=== PATIENT | female | born 1965 | race Caucasian/White ===

== ENCOUNTER 2020-09-15 16:51 | Outpatient (CLI) | payer OTHER, SELFPAY ==
--- NOTE | ~2020-09-15 | MM_ITS ---
EXAMINATION: MM screening [facility] w angela HISTORY: Screening TECHNIQUE: Craniocaudal and mediolateral oblique 3-D tomosynthesis images were obtained and synthetic 2-D images were generated. CAD analysis was submitted and interpreted. COMPARISON: Comparison to multiple prior studies sequentially, with oldest reviewed study dated 11/04. BREAST PARENCHYMAL COMPOSITION: The breasts are heterogeneously dense, which may obscure small masses . FINDINGS: There is no evidence of suspicious mass, calcification, or architectural distortion to sugg est malignancy in either breast. There has been no suspicious interval change. IMPRESSION: 1. No mammographic evidence of malignancy. 2. Recommend routine screening mammography in one year. BI-RADS Category 1: Negative Reviewed, dictated and finalized at location A. GER BAR
== END 2020-09-15 16:52 | disposition home or self-care (01) ==
LOC: ANHIMG 16:55
PROVIDERS: PCP Family Medicine; Visit Provider Obstetrics & Gynecology
DX: Z12.31 Encounter for screening mammogram for malignant neoplasm of breast (principal)
CPT/HCPCS: 77063; 77067

== ENCOUNTER 2021-09-22 17:41 | Outpatient (CLI) | payer OTHER, SELFPAY ==
--- NOTE | ~2021-09-22 | MM_ITS ---
EXAMINATION: MM screening [facility] BI w angela HISTORY: Screening mammogram TECHNIQUE: Craniocaudal and mediolateral oblique 3-D tomosynthesis images were obtained and synthetic 2-D images were generated. CAD analysis was submitted and interpreted. COMPARISON: 09/15/2020, 11/30/2018, 11/16/2017 BREAST PARENCHYMAL COMPOSITION: The breasts are heterogeneously dense, which may obscure small masses . FINDINGS: There is no evidence of suspicious mass, calcification, or architectural distortion to sugg est malignancy in either breast. There has been no suspicious interval change. IMPRESSION: 1. No mammographic evidence of malignancy. 2. Recommend routine screening mammography in one year. BI-RADS Category 1: Negative Reviewed, dictated and finalized at location A. RTMENT HEAD
== END 2021-09-22 17:42 | disposition home or self-care (01) ==
LOC: ANHIMG 17:43
PROVIDERS: PCP Family Medicine; Visit Provider Obstetrics & Gynecology
DX: Z12.31 Encounter for screening mammogram for malignant neoplasm of breast (principal)
CPT/HCPCS: 77063; 77067

== ENCOUNTER 2022-10-12 07:16 | Outpatient (CLI) | payer BC, SELFPAY ==
--- NOTE | ~2022-10-12 | MM_ITS ---
EXAMINATION: MM screening [facility] BI w angela HISTORY: Screening mammogram TECHNIQUE: Craniocaudal and mediolateral oblique 3-D tomosynthesis images were obtained and synthetic 2-D images were generated. CAD analysis was submitted and interpreted. COMPARISON: 09/22/2021, 09/15/2020, 11/30/2018 BREAST PARENCHYMAL COMPOSITION: The breasts are heterogeneously dense, which may obscure small masses . FINDINGS: No suspicious mass, calcification, or architectural distortion are identified in either gary ast to suggest malignancy. There has been no suspicious interval change. IMPRESSION: 1. No mammographic evidence of malignancy. 2. Recommend routine screening mammography in one year. BI-RADS Category 1: Negative Reviewed, dictated and finalized at location A. MECHANIC
--- NOTE | ~2022-10-12 | DEXA_ITS ---
Bone Density Report Name: TESFAYE STUART Age: 56 Sex: Female Ethnicity: White Date of : 1965 Indication: postmenopausal; screening for osteoporosis; Referring Provider: TAN SHAFFER Study: Bone densitometry was performed. Exam Date: October 12, 2022 Accession number: [id number] Bone Density: Region BMD T-score Z-score Classification AP Spine(L1-L4) 1.054 0.1 1.4 Normal Femoral Neck (Left) 0.975 1.1 2.4 Normal Total Hip (Left) 1.114 1.4 2.3 Normal Femoral Neck (Right) 0.983 1.2 2.4 Normal Total Hip (Right) 1.065 1.0 1.9 Normal Total Hip Mean 1.089 1.2 2.1 Normal World Health Organization criteria for BMD impression classify patients as: Normal (T-score at or above -1.0), Osteopenia (T-score between -1.0 and -2.5), or Osteoporosis (T-score at or below -2.5). 10-year Fracture Risk: FRAX not reported because: All T-scores for Spine Total, Hip Total, Femoral Neck at or above -1.0 Clinical Information Provided by Patient: Patient maximum height was 67 Menopause Age: 40 Drinks caffeinated beverages Onset of menses at age 10 Number of children 2 Impression: The patient has normal bone mass. Discussion: BONE DENSITY IS ABOVE THE MINIMUM DESIRABLE LEVEL AT ALL SKELETAL SITES TESTED. This patient?s bone mineral density is above the minimum desirable level (T-score -1.0 or better) at all sites measured. The patient should follow a healthful lifestyle (good nutrition with adequate calcium and vitamin D, and appropriate weight-bearing exercise). Follow-Up: Consider repeating this study in 5 years or sooner if there is some new clinical indication. Reported by: [facility] on 10/12/2022 7:53:00 AM. Reviewed, dictated and finalized at location [facility]
== END 2022-10-12 07:17 | disposition home or self-care (01) ==
LOC: ANHIMG 07:20
PROVIDERS: PCP Family Medicine; Visit Provider Obstetrics & Gynecology
DX: Z12.31 Encounter for screening mammogram for malignant neoplasm of breast (principal); Z78.0 Asymptomatic menopausal state
CPT/HCPCS: 77063; 77067; 77080

== ENCOUNTER 2024-09-18 15:55 | Outpatient (CLI) | payer BC, SELFPAY ==
--- NOTE | ~2024-09-18 | MM_ITS ---
EXAMINATION: MM screening [facility] BI w angela HISTORY: Screening TECHNIQUE: Craniocaudal and mediolateral oblique 3-D tomosynthesis images were obtained and synthetic 2-D images were generated. CAD analysis was submitted and interpreted. COMPARISON: 10/12/2022 and dating back to 11/30/2018 BREAST PARENCHYMAL COMPOSITION: The breasts are heterogeneously dense, which may obscure small masses . FINDINGS: Punctate calcification within the retrocrural areolar portion of the right breast, stable a nd benign in appearance. Stable parenchymal pattern without suspicious microcalcifications, architectural distortion, discrete masses or significant asymmetry. IMPRESSION: 1. No mammographic evidence of malignancy. 2. Recommend routine screening mammography in one year. BI-RADS Category 2: Benign finding(s). Reviewed, dictated and finalized at location A. GER TALENT ACQUISITION
== END 2024-09-18 15:56 | disposition home or self-care (01) ==
PROVIDERS: PCP Family Medicine; Visit Provider Obstetrics & Gynecology
DX: Z12.31 Encounter for screening mammogram for malignant neoplasm of breast (principal)
CPT/HCPCS: 77063; 77067

== ENCOUNTER 2025-02-04 | Day surgery (SDC) | payer BC, SELFPAY ==
[2025-01-26 14:15] VITALS: BMI 28.2
--- OUTSIDE RECORDS SUMMARY | 2025-02-04 00:02 | XMS_ITS | Data Portability ---
Author Organization [place] [employer] [facility] [employer], Main Office Address [address] [place] [address] Assessment Encounter Date Assessment Date Assessment LastModified by Organization Details LastModified Time 12/04/2022 12/04/2022 HPI: 56-year-old female came in today for evaluation of right medial elbow pain. This pain started last summer when she was helping her daughter clean and clear out her house before selling it. She did a lot of extra work with her hands gripping and holding. She started having some symptoms in the medial elbow. She has had symptoms since that time on and off depending on activities. She is very active individual and still exercises regularly and golfs. These activities will bother her at times. She will take cxwi-tcc-bodqxhi anti-inflammator ies when it is painful but not on a consistent basis. She does have a tennis elbow strap which she has used which seems to help a little bit with her symptoms as well. Physical exam: 56-year-old female very alert pleasant. Her right elbow she has full range of motion, she hyperextends 2 flexes to 140. No pain with range of motion. Full pronation supination without discomfort. Mild tenderness over the medial epicondyle to palpation. No numbness or tingling in the hand. 2+ radial pulse. No redness or warmth about the elbow. Impression: 56-year-old female who has medial epicondylitis of the right elbow. I discussed treatment options with her. Her x-rays do show small spur so this is something that is probably a little more chronic. Initially I have recommended that she stop lifting and holding things with palm up and change her mental health assistant have it as this will take stress off of this area. I have recommended a course of occupational therapy did work on decreasing the inflammation in this area. I also recommended that she take her hmkm-vvs-koecaze naproxen on a regular basis. She is healthy so I recommended to the morning and 2 at night consistently for the next several weeks to try to get things to quiet down as well. Also recommend that she use her splint on more regular basis as well. She should minimize or modify activities to decrease irritation on the medial elbow. She is going to try these measures to see how well she improves. We will see her back in a month for re-evaluation. 20 minutes was spent in treatment patient more than half of this in idwj-cw-cyyu conversation Not available 12/04/2022 16:22:45 01/12/2023 01/12/2023 HPI: Patient returns. She is still having some pain in medial aspect of the right elbow. She went to therapy and did 8 visits. She has been using anti-inflammator ies and trying to rest it. Unfortunately this is her dominant arm so she does use it on a daily basis. Her symptoms overall have improved. There is still a mild degree of pain in the medial elbow. She has symptoms when she is using it. Again it is not severe. Physical exam: Patient has full range of motion of the elbow. Mild moderate tenderness over the medial condyle. There is no numbness or tingling hand. No redness or warmth. Negative cubital tunnel Tinel's. The After ChloraPrep used on skin 5 mg Kenalog and 1 cc of 0.5% ropivacaine was injected into the areas of maximal tenderness right medial condyle. Impression: 57-year-old female who has medial epicondylitis that started last summer in February. She has been resting as much as possible. She with formal physical therapy as well as anti-inflammator ies with some improvement of her symptoms. We did discuss the option of cortisone injection and patient wanted to do this. I discussed with her that multiple injections in the tendon could cause softening tendon and would recommend against repeated injections and she understands these. After the injection she noticed significant improvement of her symptoms immediately from the ropivacaine so hopefully this will help. If it does she recall otherwise we will see her back as needed. 20 minutes was spent in treatment patient more than half this in vtke-vg-[id number] conversation Not available 01/12/2023 10:59:32 Plan of Treatment Reminders Order Date Submit Date Provider Last Modified By Organization Details Last Modified Time Details Appointments None recorded. Lab None recorded. Referral None recorded. Procedures injection/a spiration joint/bursa (PROC) - in office procedure, administere d by provider 2022 023 [email or web address] In-Office Order, Internal Use Only DO Not Attach Compendium DO Not Attach Compendium, Do Not Delete/merge, [id number] 10:17:09 Surgeries None recorded. Imaging XR, elbow 2022 023 [address] [place], [address], [place], [address], 16:03:18 Medication Orders Kenalog 10 mg/mL suspension for injection 2022 [address]23 [place] [address] [id number], [address], [place], [place], [id number], 3 21:15:56 ropivacaine (PF) 5 mg/mL (0.5 %) injection solution 2022 023 [place] [address] [facility][id number], [address] [facility], [place], [place], [phone], 3 21:15:56 Patient TargetsNo targets recorded. Patient InstructionsNo instructions recorded. Reason for Referral None Reported. Results Created Date Observation Date Name Description Value Unit Range Abnormal Flag Note LastModifiedBy Organization Detail LastModifiedTime 09/13/2009/15/2021 IGP, APTIM A HPV HPV aptima negati ve negati ve This nucle ic acid ampli ficat ion test detec ts fourt een high- risk HPV types (16,1 8,31, 33,35 ,39,4 5,51, 52,56 ,58,5 9,66, 68) witho ut diffe renti ation . Not Available [facility] [address] [place], [place], [address], 09/19/2021 12:08:37 09/13/2009/1909/19/2021 IGP, APTIM A HPV diagnosis: commen t NEGAT ASIM FOR INTRA EPITH ELIAL LESIO N OR MALIG KASSANDRA . [facility] [employer] WITH ATROP HY ARE PRESE NT. [facility] [employer] WITH INFLA MMATI ON ARE PRESE NT. Not Available [facility] [address] [facility] [place], [address], 09/19/2021 12:08:37 09/13/20 21 09/19/2021 IGP, APTIM A HPV specimen adequacy: commen t Satis facto ry for evalu ation . Endoc ervic al and/o r squam ous metap lasti c cells (endo cervi maria guadalupe compo nent) are prese nt. Not Available [facility] [address] [facility] [place], [address], 09/19/2021 12:08:37 09/13/20 21 09/19/2021 IGP, APTIM A HPV clinician provided ICD10: juanis smith Z01.4 19 Not Available [facility] [address] [facility] [place], [address], 09/19/2021 12:08:37 09/13/20 21 09/19/2021 IGP, APTIM A HPV performed by: juanis tian, Cytot echkavitha scruggs t (ASCP ) Not Available [facility] [address] [facility] [place], [address], 09/19/2021 12:08:37 09/13/20 21 09/19/2021 IGP, APTIM A HPV . . Not Available [facility] [address] [facility], [address], 09/19/2021 12:08:37 09/13/20 21 09/19/2021 IGP, APTIM A HPV note: commen t The Pap smear is a scree neeru test severo liu to aid in the detec tion of anne ligna nt and malig nant condi tions of the uteri ne cervi x. It is not a diagn ostic proce dure and shoul d not be used as the sole means of detec ting cervi maria guadalupe cance r. Both false -posi tive and false -nega tive repor ts do occur . Not Available [facility] [address] [place], [address], 09/19/2021 12:08:37 09/13/20 21 09/19/2021 IGP, APTIM A HPV test methodology: commen t This liqui d based ThinP rep(R ) pap test was scree alexa with the use of an image guide d syste m. Not Available [facility] [address] [facility] [place], [address], 09/19/2021 12:08:37 12/05/19 23 XR, elbow No observ ation record ed. [email or web address] [facility] [place] [address], [place], [address], 12/04/2022 16:19:44 Result Notes None recorded. Problems Name Problem SNOMED Code Status Onset Date Resolution Date Notes Provider Name and Address Organization Details Recorded Time Acquired trigger finger 9220016 Active Not Available [facility] 3 08:09:08 Sprain of medial collateral ligament of knee 45947680 Active Not Available [facility] 3 08:09:08 Pain of right elbow joint [id number] 9109 Active 2022 VISHNU [place], [place] [facility] [employer] [facility] 3 15:33:45 Problem Notes None recorded. Procedures Surgical History Date Name Laterality Status Provider Name and Address Organization Details Recorded Time 09/13/20 21 Date of Last Pap Smear completed Not Available [facility] 11/22/2022 08:06:08 09/15/20 20 Most Recent Mammogram completed Not Available [facility] 11/22/2022 08:06:08 12/01/19 15 Date of Last Colonoscopy completed Not Available [facility] 11/22/2022 08:06:07 05/25/20 06 other completed Not Available [facility] 3 08:06:08 09/24/19 06 [employer] Surgery completed Not Available [facility] 11/23/19 23 08:06:08 05/25/19 91 [employer] Surgery completed Not Available [facility] 11/23/19 23 08:06:08 Imaging Results Imaging Date Name Status LastModified by Organiz ation Details LastModified Time 12/04/2022 XR, elbow completed [email or web address] [facility] [place] [address], [place], [address], 12/04/2022 16:19:44 Procedure Notes None recorded. Medical Equipment None Reported. Allergies Allergen ID Allergen Name Allergen Category Reaction Reaction Severity Criticality Documentation Date Start Date Code Code System Note Provider Name and Address Organization Details Recorded Time yellow dye medicatio n Not available Not available Not available 11/22/2022 UNK yello w pills Not Available [facility] 3 08:12:37 20675 guaifenes in / phenyleph rine medicatio n rash Not available Not available 11/22/2022 78815 7 RxNorm Swoll en red legs Not Available [facility] 3 08:12:37 Medications Name Sig Start Date Stop Date Status Note LastModified by Organization Details LastModified Time amoxicillin 500 mg capsule 09/13 completed Not Available Not Available Not Available atorvastati n 10 mg tablet TAKE 1 TABLET BY MOUTH DAILY active Not Available Not Available No t Available benzonatate 200 mg capsule 10/10 completed Not Available Not Available Not Available Kenalog 10 mg/mL suspension for injection in office 2022 active [facility]: [phone] Not Available Not Available Not Available simvastatin 5 mg tablet Take 1 tablet every day by oral route. 09/13 completed Not Available Not Available Not Available erythromyci n 5 mg/gram (0.5 %) eye ointment APPLY TO INCISION THREE TIMES DAILY AFTER SURGERY active Not Available Not Available No t Available diclofenac sodium 75 mg tablet,anthony yed release 11/25 completed Not Available Not Available Not Available methylpredn isolone 4 mg tablets in a dose pack 09/13 completed Not Available Not Available Not Available fluticasone propionate 50 mcg/actuati on nasal spray,suspe nsion 11/25 completed Not Available Not Available Not Available amoxicillin 875 mg-potassiu m clavulanate 125 mg tablet 09/13 completed Not Available Not Available Not Available Estrace 0.01% (0.1 mg/gram) vaginal cream Insert 1 g 3 times a week by vaginal route for 90 days. active Not Available Not Available No t Available escitalopra m 10 mg tablet Take 1 tablet every day by oral route. 09/13 completed Not Available Not Available Not Available lidocaine (PF) 10 mg/mL (1 %) injection solution In office injection administe red by the provider 09/14 completed [facility]: [phone] Not Available Not Available Not Available Suprep Bowel Prep Kit 17.5 gram-3.13 gram-1.6 gram oral solution active Not Available Not Available Not Available ropivacaine (PF) 5 mg/mL (0.5 %) injection solution in office 2022 active Not Available Not Available Not Avai lable Fluzone Quad (PF) 60 mcg(15 mcgx4)/0.5 mL intramuscul ar syringe ADM 0.5ML IM UTD 09/02 completed Not Available Not Available Not Available Fluarix Quad (PF) 60 mcg (15 mcg x 4)/0.5 mL IM syringe ADM 0.5ML IM UTD 12/04 completed Not Available Not Available Not Available Vitals Date Recorded Body mass index (BMI) Body height Body temperature Body weight Systolic blood pressure Diastolic blood pressure Provider Name and Address Organization Details Last Updated DateTime 1 23.6 kg/m2 170.18 cm 97.6 [degF] 07345.4 5 g 126 mm[Hg] 84 mm[Hg] Not Available [employer] 3 08:06:19 Date Recorded Body height Body mass index (BMI) Body weight Provider Name and Address Organization Details Last Updated DateTime 12/04/2022 167.64 cm 26.6 kg/m2 11060.74 g VISHNU [place] [facility] [employer] [facility] 12/04/2022 15:40:07 Date Recorded Body height Provider Name an d Address Organization Details Last Updated DateTime 01/12/2023 167.64 cm Rhiannon Aguilar, Lance [facility] [employer] 01/12/2023 09:58:29 Social History Question Answer Notes LastModified by Organizat ion Details LastModified Time Tobacco Smoking Status Never Smoker Mara Goyal britney, [facility] [employer] 12/04/2022 15:20:27 What Is Your Level Of Caffeine Consumption? Occasional [id number] Information not available 11/22/2022 What Is Your Relationship Status? [id number] Information not available 11/22/2022 Do You Use Your Seat Belt Or Car Seat Routinely? Yes Information not available 12/04/2022 Sex: Female Functional Status Question Answer Note LastModified by Organizat ion Details LastModified Time Do you use any illicit or recreational drugs? No Information not available 12/04/2022 What is your level of alcohol consumption? Occasional [id number] Information not available 11/22/2022 What is your exercise level? Heavy [id number] Information not available 11/22/2022 Mental Status None recorded. Family History Relationship Description Onset Age of this Age Resolved Age Notes LastModified by Organization Details LastModified Time Mother Diabetes mellitus [id number] Not available 11/22/2022 08:06:09 Mother Heart disease [id number] Not available 11/22/2022 08:06:09 Mother Hypertensive disorder [id number] Not available 11/22/2022 08:06:09 Medical History Condition Response ANXIETY DISORDER Y DEPRESSION (INCLUDING POST ) Y HIGH CHOLESTEROL / HYPERLIPIDEMIA Y Gynecological History Statement/Question Response Abnormal Pap N Date of Last Colonoscopy 11/30/2014 Date of LMP Date of Last Pap Smear 09/13/2021 Current Control Method Menopause Age at Menarche 12 Most Recent Mammogram 09/15/2020 Obstetrics History GPAL:G 2 P 2 0 0 2 Type Value Full Term 2 Living 2 Total 2 Past Encounters Encounter ID Performer Location Encounter Start Date Encounter Closed Date Diagnosis/Indication Diagnosis SNOMED-CT Code Diagnosis ICD10 Code Diagnosis Note [id number] [facility]_M IGR[facility]_ DEFAULT_1 _1 , 09/13/2021 00:00:00 09/13/2021 18:56:47 [id number] Romario Al MD [facility] [place] [address] [place] [address] 12/04/2022 15:19:25 12/04/2022 16:23:52 Pain of right elbow joint 6132010588 7800134 M25.521 [id number] Romario Al MD [facility] [place] [address] [place] [address] 01/12/2023 09:55:13 01/12/2023 11:11:35 Pain of right elbow joint 1708887658 9949387 M25.521 Health Concerns Section Related Observation LastModified by Organization Detai ls LastModified Time None Recorded Concern Status LastModified by Organization Details LastModified Time None Recorded Advance Directives Directive None Recorded Payers Encounter Date Sequence Insurance Name Policy Number Policy Akins Covered Member ID Akins Member ID Guarantor Name 12/04/2022 1 [place] [id number] Chari Perales [id number] Chari Perales 01/12/2023 1 [place] [id number] Chari Perales [id number] Chari Perales OBGyn Episode No OBEpisode recorded.
[2025-02-04 08:25] VITALS: BP 123/73; PULSE 70; RESP 16; TEMP 36.2; O2SAT 99
[2025-02-04] MEDS: LACTATED RINGERS 1,000 ML 150 ML IV CONT (08:33)
--- NOTE | 2025-02-04 08:37 | P.PNAN_ITS ---
Anes - Initial Pre Proc Eval Procedure: Operation Date: 02/04/25 09:30 Proposed Procedures p Screening Colonoscopy - Rafita Fallon MD Date/Time: 02/04/25 08:37 Surgeon: Rafita Fallon MD Pre Op Diagnosis: Screening Patient Data Age: 59 Gender: F Height: 1.7 m Weight: 80.1 kg Last Vital Signs Temp 36.2 C L 02/04/25 08:25 Pulse 70 02/04/25 08:25 Resp 16 02/04/25 08:25 BP 123/73 02/04/25 08:25 Pulse Ox 99 02/04/25 08:25 O2 Del Method Room Air 02/04/25 08:25 Allergies Allergy/AdvReac Type Severity Reaction Status Date / Time guaifenesin (From Entex T) Allergy Severe Redness of Verified 02/04/25 08:23 Skin pseudoephedrine (From Entex Allergy Severe Redness of Verified 02/04/25 08:23 T) Skin Home Medications Medication Instructions Recorded Confirmed Type multivitamin (Daily Multi-Vitamin 1 tablet PO DAILY 08/09/22 02/04/25 History tablet) biotin 10,000 mcg chewable tablet mcg PO 07/26/23 01/06/25 History (Hair, Skin and Nails (biotin)) escitalopram oxalate 20 mg tablet 20 mg PO DAILY #90 tabs 08/25/24 02/04/25 Rx cholecalciferol (vitamin D3) 25 25 mcg PO DAILY 08/27/24 02/04/25 History mcg (1,000 unit) capsule atorvastatin 10 mg tablet See Rx Instructions .Route 09/26/24 02/04/25 Rx .COMPLEX #90 tabs buspirone 10 mg tablet 10 mg PO BID #180 tabs 01/15/25 02/04/25 Rx Patient hx anesthesia problems: none Family hx anesthesia problems: none Results Review: All pre-operative results and documents have been reviewed as part of the pre-operative evaluation. [facility] Past Medical History Medical History Asymptomatic menopausal state Screening mammogram, encounter for History of mammogram (~11/16/14) Surgical History Surgical History History of tubal ligation (~1990) History of endometrial ablation (~10/25/05) History of colonoscopy (~11/30/14) Family History Family History Father Family history of cardiovascular disease Family history of arthritis Malignant neoplasm of prostate Family history of cardiac disorder Mother Family history of cardiovascular disease Family history of chronic obstructive pulmonary disease Social History Social History Smoking status: Never smoker Second hand tobacco smoke exposure: No Alcohol intake: current Alcohol use details: occasionally Substance use: never Substance use type: does not use Do You Feel Safe in your Home?: Yes Lack of Transportation: No Lack of Food: Never True Current Housing: I Have Housing Concerned About Future Housing: No Difficulty Paying Gas/Electric Bills: No Difficulty Paying for Meds: No Currently Unemployed: No Education: High School Diploma/GED Difficulty w/ Childcare or Family Care: No Living arrangements: with family Additional living arrangements comments: Occupation/Education: retired Gender identity (if verbalized by the patient): Female Sexual Orientation (if Verbalized by the Patient): Straight or Heterosexual Agree to blood products: Yes Anes - Eval Final PreProcedure Day of Procedure 02/04/25 08:37 Patient weight: overweight Heart: regular rate and rhythm Lungs: clear to auscultation Airway: Mallampati scale class II Neurological: alert and oriented Last oral intake: >/= 8 hours ASA classification: II Emergent: no Anesthetic plan: proceed Anesthesia type and monitoring: general GIVS and standard monitoring Results Review: All pre-operative results and documents have been reviewed as part of the pre- operative evaluation. Informed Consent: The patient's anesthetic plan and its attendant risks and benefits were discussed with the patient/family/POA. Questions were solicited and answers provided to the satisfaction of the patient/family/POA.
--- NOTE | 2025-02-04 09:42 | PM.IMHP ---
H&P: HPI History of Present Illness Date/Time: 02/04/25 09:42 Chief Complaint: Screening colonoscopy Narrative: This is the patient's 2nd colonoscopy. There are no GI symptoms and there is no family history of colorectal cancer. Review of Systems Review of Systems: All systems reviewed & are unremarkable except as noted in HPI and below PMFSH Past Medical History Medical History Asymptomatic menopausal state Screening mammogram, encounter for History of mammogram (~11/16/14) Surgical History Surgical History History of tubal ligation (~1990) History of endometrial ablation (~10/25/05) History of colonoscopy (~11/30/14) Family History Family History Father Family history of cardiovascular disease Family history of arthritis Malignant neoplasm of prostate Family history of cardiac disorder Mother Family history of cardiovascular disease Family history of chronic obstructive pulmonary disease Social History Social History Smoking status: Never smoker Second hand tobacco smoke exposure: No Alcohol intake: current Alcohol use details: occasionally Substance use: never Substance use type: does not use Do You Feel Safe in your Home?: Yes Lack of Transportation: No Lack of Food: Never True Current Housing: I Have Housing Concerned About Future Housing: No Difficulty Paying Gas/Electric Bills: No Difficulty Paying for Meds: No Currently Unemployed: No Education: High School Diploma/GED Difficulty w/ Childcare or Family Care: No Living arrangements: with family Additional living arrangements comments: Occupation/Education: retired Gender identity (if verbalized by the patient): Female Sexual Orientation (if Verbalized by the Patient): Straight or Heterosexual Agree to blood products: Yes Meds Home Medications and Allergies Home Medications Medication Instructions Recorded Confirmed Type multivitamin (Daily Multi-Vitamin 1 tablet PO DAILY 08/09/22 02/04/25 History tablet) biotin 10,000 mcg chewable tablet mcg PO 07/26/23 01/06/25 History (Hair, Skin and Nails (biotin)) escitalopram oxalate 20 mg tablet 20 mg PO DAILY #90 tabs 08/25/24 02/04/25 Rx cholecalciferol (vitamin D3) 25 25 mcg PO DAILY 08/27/24 02/04/25 History mcg (1,000 unit) capsule atorvastatin 10 mg tablet See Rx Instructions .Route 09/26/24 02/04/25 Rx .COMPLEX #90 tabs buspirone 10 mg tablet 10 mg PO BID #180 tabs 01/15/25 02/04/25 Rx Allergies Allergy/AdvReac Type Severity Reaction Status Date / Time guaifenesin (From Entex T) Allergy Severe Redness of Verified 02/04/25 08:23 Skin pseudoephedrine (From Entex Allergy Severe Redness of Verified 02/04/25 08:23 T) Skin Vital Signs Vital Signs - 24 hr 02/04/25 08:25 Temperature 97.1 F L Pulse Rate 70 Respiratory Rate 16 Blood Pressure 123/73 Pulse Oximetry 99 Oxygen Delivery Room Air Exam Const: General: cooperative and healthy appearing Resp: Effort & Inspection: normal respiratory effort and able to speak in complete sentences Auscultation: clear to auscultation bilaterally Cardio: Rate: regular rate Rhythm: regular rhythm GI: Inspection: normal to inspection GI Palp: No No hepatosplenomegaly present Auscultation: normal bowel sounds Rectal Exam: deferred Skin: General skin exam: normal color Psych: Appearance: grossly normal Mental Status: mental status grossly normal Assessment and Plan Assessment and plan (1) Screening for colon cancer: Code(s): Z12.11 - Encounter for screening for malignant neoplasm of colon Status: Acute Assessment and Plan: The patient is deemed a good candidate for the procedure. Consent signed. Will proceed.
[2025-02-04 10:03] VITALS: BP 101/64; PULSE 60; RESP 17; O2SAT 98
[2025-02-04 10:13] VITALS: BP 113/71; PULSE 70; RESP 13; O2SAT 100
[2025-02-04 10:23] VITALS: BP 122/72; PULSE 53; RESP 15; O2SAT 100
== END 2025-02-04 10:36 | disposition home or self-care (01) ==
PROVIDERS: PCP Family Medicine; Referring Provider Family Medicine; Visit Provider Internal Medicine Gastroenterology
PROC: 0DJD8ZZ Inspection of Lower Intestinal Tract, Via Natural or Artificial Opening Endoscopic (ICD-10-PCS; CPT 45378; principal; 2025-02-04 09:30)
DX: Z12.11 Encounter for screening for malignant neoplasm of colon (principal)
CPT/HCPCS: 45378; J2704; J7120

== ENCOUNTER 2025-09-21 15:35 | Outpatient (CLI) | payer BC, SELFPAY ==
--- NOTE | ~2025-09-21 | MM_ITS ---
EXAMINATION: MM screening jeanne BI w angela HISTORY: Screening. TECHNIQUE: Craniocaudal and mediolateral oblique 3-D tomosynthesis images were obtained and synthetic 2-D images were generated. CAD analysis was submitted and interpreted. COMPARISON: 2023, 2022, and 2020. BREAST PARENCHYMAL COMPOSITION: Dense: The breasts are heterogeneously dense, which may obscure small masses. FINDINGS: No suspicious masses are seen. There are no suspicious calcifications. No unexplained architectural distortion is seen. There are no skin or nipple abnormalities identified. There is no adenopathy seen on the images submitted. IMPRESSION: No mammographic evidence to suggest malignancy is seen. The patient may return to screening mammography as per ACR guidelines. BI-RADS 1 - Negative. Reviewed, dictated and finalized at location C. [employer]
== END 2025-09-21 15:36 | disposition home or self-care (01) ==
LOC: ANHFOHIMG 15:36
PROVIDERS: PCP Family Medicine; Visit Provider Obstetrics & Gynecology
DX: Z12.31 Encounter for screening mammogram for malignant neoplasm of breast (principal)
CPT/HCPCS: 77063; 77067